=== PATIENT | female | born 1975 | race Caucasian/White ===

== ENCOUNTER → 2016-09-13 | Outpatient (CLI) | payer BC, OTHER ==
[~2016-09-13] MED LIST: AMOXICILLIN 8751 TAB PO; AMOXICILLIN875 MG PO; ANTIVERT 25MG25 MG PO; CIMZIA200 MG/ML SC; EMBREL; ENBREL50 MG/ML SC; FLEXERIL 1010 MG/TAB PO; HUMIRA40 MG/0.8 MR; IBUPROFEN1 CRY; IBUPROFEN200 M1 PO; LEVAQUIN 5500 MG/TAB PO; LORTAB 5/500 501 TAB PO; METHOTREXA2.5 MG/TAB PO; METHOTREXATE2.5 MG PO; NAPROXEN 3375 MG/TAB PO; NO HOME MEDICATIONS; NORCO 325 MG-51 TAB PO; PERCOCET 325 MG1 TA2 PO; PERCOCET 5/321 UDTAB PO; PHENERGAN 25 TA25 MG PO; SIMPONI50 MG/0.5 SC; STELARA45 MG/0.5 SC; TREXALL5 MG; ULTRAM 50MG TAB50 MG PO; VALTREX1 GM PO; [UNRECOGNIZED DRUG - OTHER]; embrel
== END ==
LOC: COL.RAD 13:37
PROVIDERS: Family Medicine
DX: R59.0 Localized enlarged lymph nodes (principal); N20.0 Calculus of kidney
CPT/HCPCS: Q9967

== ENCOUNTER → 2017-01-30 | Outpatient (CLI) | payer BC, OTHER | LOC: MC.RAD 14:36 | DX: Z12.31 Encounter for screening mammogram for malignant neoplasm of breast (principal) ==

== ENCOUNTER → 2018-09-04 | Outpatient (CLI) | payer OTHER ==
[~2018-09-04] MED LIST changes: +BENADRYL25 M2 PO; +ENSTILAR 0.005%60 GM TP; +TEMOVATE OINT30 GM TOP; +[UNRECOGNIZED DRUG - CODE] TOP
== END ==
LOC: MC.RAD 12:38
DX: Z12.31 Encounter for screening mammogram for malignant neoplasm of breast (principal)

== ENCOUNTER → 2019-08-19 | Outpatient (CLI) | payer OTHER | LOC: COL.RAD 08-12 14:00 | DX: M25.551 Pain in right hip (principal); M54.5 Low back pain | CPT/HCPCS: G0260; J3301 ==

== ENCOUNTER → 2019-10-10 | Outpatient (CLI) | payer OTHER | LOC: COL.RAD 10-09 09:45 | DX: R10.11 Right upper quadrant pain (principal) ==

== ENCOUNTER → 2019-10-21 | Outpatient (CLI) | payer OTHER | LOC: MC.RAD 15:18 | DX: Z12.31 Encounter for screening mammogram for malignant neoplasm of breast (principal) ==

== ENCOUNTER 2020-07-15 06:44 | Day surgery (SDC) | payer OTHER ==
[~2020-07-15] VITALS: Ht 152.4 cm; Wt 87.7 kg
[2020-07-15] VITALS (9 sets, daily range): BP systolic 119–139; BP diastolic 70–87; PULSE 93–97; TEMP 98.3–98.7
[2020-07-15] MEDS ORDERED: TALTZ AUTO80 MG/1 ML SQ (07:09)
[2020-07-15] MEDS ORDERED: GLUCOPHAGE1000 MG PO (07:11)
[2020-07-15] MEDS ORDERED: TREXALL5 MG PO (07:11)
[2020-07-15] MEDS ORDERED: ROXICODONE 55 MG/TAB PO (09:23)
--- NOTE | 2020-07-15 10:36 | NUR ---
Patient returns to room 7 per cart from PACU accompanied by Lucinda RADFORD and arouses to verbal stimuli. Temp 97.4 and sats 95% on 2L per nasal cannula. IV fluids infusing and site is free of redness. Incisions X4 covered with Exofen dressing dry and no drainage noted. Spouse in room. Sdierails up x2 and call light in reach. Allowed to sleep.
--- NOTE | 2020-07-15 10:51 | NUR ---
Resting with eyes closed when not disturbed. IV fluids continue to infuse.
--- NOTE | 2020-07-15 11:06 | NUR ---
Continues to rest without complaints of pain. Spouse remains in the room.
--- NOTE | 2020-07-15 11:21 | NUR ---
Continues to rest with eyes closed. Spouse in room.
--- NOTE | 2020-07-15 11:36 | NUR ---
Continues to rest without complaints of pain or nausea.
--- NOTE | 2020-07-15 12:06 | NUR ---
Awake and sipping on Sprite. Denies pain or nausea.
--- NOTE | 2020-07-15 12:36 | NUR ---
Awake and eating muffin. Oxygen removed and sats 96%. Drinking water without nausea.
--- NOTE | 2020-07-15 12:45 | NUR ---
Assisted up to the bathroom and gait is steady. Voids and returns to room.
--- NOTE | 2020-07-15 13:00 | NUR ---
IV discontinued and site is free of redness. Patient dresses self. Instructions given and signed.
--- NOTE | 2020-07-15 13:15 | NUR ---
Patient dismissed to home driven by spouse and taken to the front door per wheelchair and assisted into vehicle.
== END 2020-07-15 13:15 | disposition home or self-care (01) ==
LOC: SDCO 06:44
DX: K80.10 Calculus of gallbladder with chronic cholecystitis without obstruction (principal); E11.9 Type 2 diabetes mellitus without complications; K21.9 Gastro-esophageal reflux disease without esophagitis; I10 Essential (primary) hypertension; Z90.710 Acquired absence of both cervix and uterus; Z88.5 Allergy status to narcotic agent; Z88.8 Allergy status to other drugs, medicaments and biological substances; Z79.84 Long term (current) use of oral hypoglycemic drugs
CPT/HCPCS: J0690; J1100; J1170; J1885; J2405; J2550; J2704; J3010; J7030; J7120